=== PATIENT | male | born 1955 | race Caucasian/White ===

== ENCOUNTER 2017-08-23 09:19 | Emergency (ER) | payer MEDICARE, OTHER ==
[~2017-08-23] VITALS: Ht 185.4 cm; Wt 99.8 kg
[2017-08-23] MEDS ORDERED: NEURONTIN600 MG PO (09:38)
[2017-08-23] MEDS ORDERED: METFORMIN HCL500 MG PO (09:39)
[2017-08-23] MEDS ORDERED: LOPRESSOR100 M1 PO (09:39)
[2017-08-23] MEDS ORDERED: HYDROCODONE-AP1 EAC6 PO (09:39)
[2017-08-23] MEDS ORDERED: PRINIVIL20 MG PO (09:40)
[2017-08-23] MEDS ORDERED: FLEXERIL PO (09:40)
[2017-08-23 09:43] LABS: ABSOLUTE BASOPHILS 0.1 thou/uL (0.0-0.2); ABSOLUTE EOSINOPHILS 0.1 thou/uL (0.0-0.7); ABSOLUTE LYMPHOCYTES 1.7 thou/uL (0.8-5.3); ABSOLUTE MONOCYTES 0.4 thou/uL (0.0-1.2); ABSOLUTE NEUTROPHILS 4.1 thou/uL (1.6-8.1); BASOPHILS 0.8 %; EOSINOPHILS 1.6 %; HEMATOCRIT 42.7 % (42.0-52.0); HEMOGLOBIN 14.6 gm/dL (14.0-18.0); LYMPHOCYTES 26.6 %; MCH 30.6 pg (26.0-34.0); MCHC 34.1 g/dL (28.0-37.0); MCV 89.7 fL (80.0-100.0); MONOCYTES 6.9 %; NUCLEATED RBCS 0 /100WBC; PLATELET COUNT* 161 thou/uL (150-400); POLYS 64.1 %; RBC 4.76 mil/uL (4.50-6.00); RDW-CV 12.7 % (10.5-14.5); WBC 6.4 thou/uL (4.0-11.0)
[2017-08-23 09:57] LABS: ANION GAP 6 mmol/L (7-16); BUN 19 mg/dL (7-18); CALCIUM 9.1 mg/dL (8.5-10.1); CHLORIDE 103 mmol/L (98-107); CO2 28 mmol/L (21-32); GLUCOSE 206 mg/dL (70-99); POTASSIUM 4.2 mmol/L (3.5-5.1); SODIUM 137 mmol/L (136-145)
[2017-08-23 10:01] LABS: ALBUMIN 3.8 g/dL (3.4-5.0); ALKALINE PHOSPHATASE 54 U/L (46-116); SGOT 17 U/L (15-37); SGPT 26 U/L (30-65); TOTAL BILIRUBIN 0.8 mg/dL (<0.1-1.0); TOTAL PROTEIN 7.1 g/dL (6.4-8.2); TROPONIN-I LEVEL <0.06 ng/mL (<0.06)
[2017-08-23] MEDS ORDERED: ZOFRAN ODT4 MG PO (10:29)
[2017-08-23] MEDS ORDERED: ANTIVERT25 MG PO (10:29)
[2017-08-23 10:40] VITALS: BP 122/76
--- NOTE | 2017-08-24 11:38 | EKG ---
[place] [address] ELECTROCARDIOGRAM REPORT Name: BARRERA GUERRA [facility] [id number] Admission: 08/23/17 Attend Phys: Discharge: 08/23/17 Date of : 51 Report #: [id number] THIS REPORT FOR: //name// [facility] ED Test Date: 2017-08-23 Test Time: 09:24:32 Pat Name: BARRERA GUERRA Department: Room: Gender: M Technical Instructor: LOI : 1955 Requested By: Isiah Payton Order Number: [id number] MD: Josef George Measurements Intervals [place] Rate: 66 P: 29 VA: 152 QRS: -36 QRSD: 96 T: 37 QT: 416 QTc: 436 Interpretive Statements Sinus rhythm Left axis deviation Abnormal R-wave progression, early transition Baseline wander in lead(s) V2 No previous ECG available for comparison Electronically Signed On 08-24-2017 11:38:14 CDT by Josef George [email or web address] <ELECTRONICALLY SIGNED> By: Josef George MD, [facility] 08/24/17 1138 3 3 Josef George MD, FACC /EPI
== END 2017-08-23 10:41 | disposition home or self-care (01) ==
LOC: M.ERS 09:19
PROVIDERS: Emergency Medicine Emergency Medical Services
DX: H81.10 Benign paroxysmal vertigo, unspecified ear (principal); E11.9 Type 2 diabetes mellitus without complications; G89.29 Other chronic pain; M54.9 Dorsalgia, unspecified